=== PATIENT | male | born 1970 | race Caucasian/White ===

== ENCOUNTER 2017-09-26 03:00 | Emergency (ER) | payer MEDICAID, OTHER ==
[~2017-09-26 03:00] MED LIST: Z.0.NO CURRENT MEDS
--- NOTE | 2017-09-26 06:07 | PD ---
HPI Chief Complaint: medical clearance Time Seen by Provider: 06:00 Travel History International Travel<30 days: No Contact w/Intl Traveler<30days: No Traveled to known affect area: No History of Present Illness HPI 47-year-old male presents emergency Department in custody of PD for medical clearance to go to halfway. The patient was laced under arrest and brought up to the [place] halfway. When he had gotten to the halfway he complained of pain in his head. He had sustained an injury to the back of his head. Patient denies syncope. No nausea vomiting. No numbness, tingling or weakness. 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 He claims that he was at [employer] and was kicked out after he was offered to purchased cocaine in the bathroom. The patient states that he had sustained his injuries during his arrest. Patient admits to drinking heavily. He also states he loves smoking marijuana. He states that he smokes almost daily.. PFSH Past Medical History Medical History: Denies Significant Hx Tetanus Vaccination: < 5 Years Past Surgical History Narrative Surgical Herniorrhaphy Other Surgery: Yes (RT INGUINAL HERNIORRHAPHY X 2; PENCIL REMOVED FROM RT THIGH ) Social History Alcohol Use: Yes Tobacco Use: Yes (1 PPD) Substance Use: Yes (RARE MARIJUANNA USE) Allergies-Medications (Allergen,Severity, Reaction): Coded Allergies: No Known Allergies (Verified , 04/22/11) Reported Meds & Prescriptions Reported Meds & Active Scripts Active Reported No Current Meds (Miscellaneous Medication) Misc Review of Systems General / Constitutional: No: Fever Eyes: No: Visual changes HENT: No: Headaches, Neck Stiffness, Neck Pain Cardiovascular: No: Chest Pain or Discomfort Respiratory: No: Shortness of Breath Gastrointestinal: No: Abdominal Pain Genitourinary: No: Dysuria Musculoskeletal: No: Pain Skin: No Rash Neurologic: Positive: Headache, No: Weakness Psychiatric: No: Depression Endocrine: No: Polydipsia Hematologic/Lymphatic: No: Easy Bruising Physical Exam Narrative GENERAL: Well-developed, well-nourished in no apparent distress. Nontoxic appearing. Patient smells of EtOH and appears intoxicated. HEAD: Patient is a soft tissue contusion to the right posterior occiput. No bony step-off. EYES: Pupils equal round and reactive. Extraocular motions intact. No scleral icterus. No injection or drainage. ENT: Nose clear. Throat without erythema, tonsillar hypertrophy or exudate. Uvula midline. Airway patent. NECK: Trachea midline. Supple, nontender, moves head freely. No central bony tenderness or spasm. CARDIOVASCULAR: Regular rate and rhythm without murmurs, gallops, or rubs. RESPIRATORY: Clear to auscultation. Breath sounds equal bilaterally. No wheezes , rales, or rhonchi. GASTROINTESTINAL: Abdomen soft, non-tender, nondistended. No hepato-splenomegaly , or palpable masses. No guarding. EXTREMITIES: No clubbing, cyanosis, or edema. No joint tenderness. BACK: Nontender without deformity. No flank tenderness. NEUROLOGICAL: Awake, alert and oriented x 3 .Cranial nerves grossly intact. Motor and sensory grossly within normal limits. Normal speech. Data Data Orders Orders Ct Brain W/O Iv Contrast(Rout) (09/26/17 04:39) MDM Medical Decision Making Medical Screen Exam Complete: Yes Emergency Medical Condition: Yes Medical Record Reviewed: Yes Differential Diagnosis MDM: High Differential diagnoses: Fracture, sprain, strain, dislocation, contusion, neurovascular injury Narrative Course Patient's CAT scan is negative for trauma. The patient is medically cleared to go to halfway. This is head contusion Diagnosis Primary Impression: Head contusion Qualified Codes: S00.93XA - Contusion of unspecified part of head, initial encounter Additional Impression: Medical clearance for incarceration Additional Instructions: Rest. Head precautions. Tylenol for pain. Ice packs. Avoid alcohol. Avoid all sedating or intoxicating substances. Recheck with your physician within 1-2 days. Return to the ER for any problems. Med/Other Pt SpecificInfo: Wound Care Disposition: DISCHARGE HOME Condition: Stable Patrick Lentz Sep 26, 2017 06:07
--- NOTE | 2017-09-26 06:58 | RADRPT ---
EXAM DATE/TIME: 09/26/2017 03:26 [facility] COMPARISON: No previous studies available for comparison. INDICATIONS : Headache. RADIATION DOSE: 56.35 CTDIvol (mGy) MEDICAL HISTORY : None SURGICAL HISTORY : None. ENCOUNTER: Initial ACUITY: 1 day PAIN SCALE: 7/10 LOCATION: cranial TECHNIQUE: Multiple contiguous axial images were obtained of the head. Using automated exposure control and adj ustment of the mA and/or kV according to patient size, radiation dose was kept as low as reasonably a chievable to obtain optimal diagnostic quality images. DICOM format image data is available electro nically for review and comparison. FINDINGS: CEREBRUM: The ventricles are normal for age. No evidence of midline shift, mass lesion, hemorrhage or acute in farction. No extra-axial fluid collections are seen. POSTERIOR FOSSA: The cerebellum and brainstem are intact. The 4th ventricle is midline. The cerebellopontine angle i s unremarkable. EXTRACRANIAL: The visualized portion of the orbits is intact. SKULL: The calvaria is intact. No evidence of skull fracture. CONCLUSION: Negative noncontrast CT brain. Luis Solano MD on September 26, 2017 at 4:12 Board Certified Radiologist. This report was verified electronically.
== END 2017-09-26 06:08 | disposition home or self-care (01) ==
LOC: NEPD 03:00
DX: S00.93XA Contusion of unspecified part of head, initial encounter (principal); F17.200 Nicotine dependence, unspecified, uncomplicated; Y35.93XA Legal intervention, means unspecified, suspect injured, initial encounter
CPT/HCPCS: 70450; 99284